=== PATIENT | female | born 1990 | race Caucasian/White ===

== ENCOUNTER → 2016-08-12 | Outpatient (CLI) | payer BC, MEDICAID ==
[~2016-08-12] MED LIST: ASCORBIC ACID500 MG PO; COLACE-DPS100 MG PO; FEOSOL-DPS325 MG PO; MOTRIN-DPS800 MG PO; NIPPLECREAM TP; PRENATAL VITAM1 EAC6 PO
== END | disposition home or self-care (01) ==
LOC: RAD.S 11:00
DX: Z34.82 Encounter for supervision of other normal pregnancy, second trimester (principal); Z3A.20 20 weeks gestation of pregnancy